=== PATIENT | female | born 1965 | race Caucasian/White ===

== ENCOUNTER 2018-12-30 22:02 | Emergency (ER) | payer OTHER ==
[~2018-12-30] VITALS: Ht 160 cm; Wt 62.6 kg
[~2018-12-30 22:02] MED LIST: CYAN100T35 PO; CYCL10TA7 PO; HYDR-4011 PO; NAPR-985 PO; VITA400T6 PO
[2018-12-30 22:08] VITALS: Ht 160 cm; Wt 62.6 kg
[2018-12-31] MEDS ORDERED: KETOROLAC 30 MG INJ IM STA (00:05)
[2018-12-31 01:34] VITALS: BP 113/71; PULSE 89; RESP 16
== END 2018-12-31 01:36 | disposition home or self-care (01) ==
LOC: E/R 22:02
DX: M79.9 Soft tissue disorder, unspecified (principal); R06.02 Shortness of breath
CPT/HCPCS: 36415; 71045; 80053; 84484; 85025; 85610; 93005; 93971; 96372; J1885; Z7502